=== PATIENT | female | born 1995 | race African-American/Black ===

== ENCOUNTER 2021-11-23 21:36 | Emergency (ER) | payer MEDICAID ==
[~2021-11-23] VITALS: Ht 162.6 cm; Wt 86.2 kg
[2021-11-23 21:36] VITALS: BP 89/68
[2021-11-24 01:31] LABS: Eosinophils # (auto) 0.1 10 ^3/uL (0-0.8); Eosinophils % (auto) 0.4 % (0.0-7.0); Lymphocytes # (auto) 4.2 10 ^3/uL (0.4-5.4); Lymphocytes % (auto) 26.3 % (10.0-50.0); Neutrophils # (auto) 10.3 10 ^3/uL (1.6-8.6); Nucleated Red Blood Cells % 0.1 %; Red Cell Distribution Width 15.6 % (11.8-14.3)
[2021-11-24 01:33] LABS: Basophils # (auto) 0.2 10 ^3/uL (0-0.2); Basophils % (auto) 1.1 % (0.0-2.0); Hematocrit 34.3 % (36.0-46.0); Hemoglobin 11.2 g/dL (12.2-16.2); Mean Corpuscular Hemoglobin 26.3 pg (28.0-32.0); Mean Corpuscular Hgb Conc. 32.7 g/dL (32.0-36.0); Mean Corpuscular Volume 80.5 fL (80.0-100.0); Monocytes # (auto) 1.3 10 ^3/uL (0-1.3); Neutrophils % (auto) 64.2 % (37.0-80.0); Red Blood Cells 4.26 10^6/uL (4.0-5.20)
[2021-11-24 01:51] LABS: Albumin 4.1 g/dL (3.4-5.0); BUN/Creatinine Ratio 21.8; Calcium 9.5 mg/dL (8.5-10.1); Potassium 3.9 mmol/L (3.5-5.1)
[2021-11-24 01:53] LABS: Bilirubin, Total 0.2 mg/dL (0.2-1.0); Total Protein 8.6 g/dL (6.4-8.2)
[2021-11-24] MEDS ORDERED: CIPR-173 PO (06:33)
[2021-11-24] MEDS ORDERED: METR500T PO (06:33)
== END 2021-11-24 07:24 | disposition home or self-care (01) ==
LOC: ER 21:36
DX: I88.0 Nonspecific mesenteric lymphadenitis (principal); R56.9 Unspecified convulsions
CPT/HCPCS: 36415; 71045; 74176; 80053; 83690; 85025